=== PATIENT | female | born 1945 | race Caucasian/White ===

== ENCOUNTER → 2017-09-05 | Day surgery (SDC) | payer MEDICARE ==
[~2017-09-05] VITALS: Ht 162.6 cm; Wt 84.8 kg
[~2017-09-05] MED LIST: *ONDANSETRON 4 MG VIAL PERIprocedural Use ONLY ONE; *RESP: ALBUTEROL 2.5 MG/3 ML NEB (PRN) PERIprocedural Use ONLY NEB ONE; ACETAMINOPHEN 1000 MG/100 ML 100 ML IV ONE; ACETAMINOPHEN/HYDROcodone 325 MG/5 MG TAB PO PRN; AMLO5TAB2 PO; ANAS1TAB PO; APREPITANT 40 MG CAP ONE; ASPI81CH7 PO; BUPIVACAINE/EPINEPHRINE 0.25% 50 ML VIAL ONE; CHLORHEXIDINE GLUCONATE 2 % 1 PACK (2 CLOTHS) TOPICAL PRN; DEXAMETHASONE SOD PHOS 4 MG/ML VIAL IV ONE; DO NOT ADM ANY ANTICOAGULANT DRUGS PRN; FAMOTIDINE 20 MG/2 ML VIAL ONE; GLUC500T4 PO; GLYCOPYRROLATE 1 MG/5 ML SYRINGE IV PUSH ONE; HYDR25TA5 PO; HYDROmorphone HCL PF 2 MG/ML VIAL ONE; LACTATED RINGER'S 1000 ML INJ 1,000 ML IV ONE; LACTATED RINGER'S 1000 ML IV PRN; LIDOCAINE HCL 1% PF 5 ML AMPULE OTHER ONE; LOSA50TA PO; METOPROLOL TARTRATE 25 MG TAB PO PRN; MULTTAB67 PO; NEOSTIGMINE 3 MG/3 ML SYR IV ONE; NEXI40CA PO; ONDANSETRON HCL 4 MG/2 ML VIAL IV PUSH ONE; ONDANSETRON HCL 4 MG/2 ML VIAL IV PUSH PRN; POVIDONE IODINE 5% (ANTISEPSIS KIT) 4 APPLICATIONS EACH NARE PRN; PRAV10TA PO; PROPOFOL 200 MG/20 ML AMP IV ONE; ROCURONIUM INJ 50 MG/5 ML SYRINGE IV PUSH ONE; SODIUM CHLORID 0.9% 500 ML IV PRN; VITA2000 PO; ceFAZolin 2 GM PREMIX 50 ML IV SCH
[2017-09-05 10:14] LABS: AUTOMATED NEUTROPHIL # 3.5 TH/MM3 (1.8-7.7); BASOPHIL % 0.4 % (0.0-2.0); EOSINOPHIL # 0.1 TH/MM3 (0-0.4); EOSINOPHIL % 2.3 % (0.0-4.0); HEMATOCRIT 35.5 % (35.0-46.0); HEMO FLAGS DIFF FINAL; LYMPHOCYTE # 2.2 TH/MM3 (1.0-4.8); MEAN CELL VOLUME 88.9 FL (80.0-100.0); MEAN CORPUSCULAR HEMOGLOBIN 30.4 PG (27.0-34.0); MEAN CORPUSCULAR HGB CONC 34.2 % (32.0-36.0); MONO % 7.9 % (0.0-8.0); NEUT % 55.4 % (16.0-70.0); PLATELET COUNT 309 TH/MM3 (150-450); RED BLOOD COUNT 3.99 MIL/MM3 (4.00-5.30); RED CELL DISTRIBUTION WIDTH 14.3 % (11.6-17.2); WHITE BLOOD COUNT 6.4 TH/MM3 (4.0-11.0)
[2017-09-05 10:28] LABS: ANION GAP 8 MEQ/L (5-15); AST (GOT) 18 U/L (15-37); BICARBONATE 26.9 MEQ/L (21.0-32.0); CHLORIDE 104 MEQ/L (98-107); GLOMERULAR FILTRATION RATE 66 ML/MIN (>89); POTASSIUM 3.3 MEQ/L (3.5-5.1); SODIUM (NA) 139 MEQ/L (136-145)
[2017-09-05 10:35] LABS: ALKALINE PHOSPHATASE 84 U/L (45-117); ALT (GPT) 39 U/L (10-53); BLOOD UREA NITROGEN 13 MG/DL (7-18); TOTAL BILIRUBIN ADULT 0.4 MG/DL (0.2-1.0)
--- NOTE | 2017-09-05 11:44 | PD.OP ---
Operative Report Date of Surgery: Sep 05, 2017 Preoperative Diagnosis: hiatal hernia, GERD umbilical incisional hernia Postoperative Diagnosis: same Procedure: lap repair hiatal hernia, implantation magnetic sphincter augmentation device open repair umbilical incisional hernia. Anesthesia: general Surgeon: Maurice Miller Reverse Logistics Analyst(s): Jorje Xiong Operation and Findings: small hiatal hernia approximated with suture. size 16 Linx. EBL minimal Maurice Miller MD Sep 05, 2017 11:44
--- NOTE | 2017-09-05 12:52 | MP ---
cc: CHELSEY CHAVARRIA M.D., MARK M.D. Corrected Copy: 09/06/2017 DATE OF SURGERY 09/05/2017 PREOPERATIVE DIAGNOSIS Hiatal hernia, gastroesophageal reflux disease, umbilical incisional hernia. POSTOPERATIVE DIAGNOSES Hiatal hernia, gastroesophageal reflux disease, umbilical incisional hernia. PROCEDURE Laparoscopic repair hiatal hernia with implantation magnetic sphincter augmentation device and open repair umbilical incisional hernia. SURGEON Dr. Chelsey Chavarria SLICE PLUG CUTTER OPERATOR Dr. Jorje Xiong ANESTHESIA General INDICATIONS This is a pleasant 72-year-old woman who was sent to me in consultation by Dr. Syd Emamnuel for evaluation of hiatal hernia and gastroesophageal reflux disease, refractory to proton pump inhibitor treatment. She underwent preoperative EGD and has biopsy proven esophagitis. She has had prior history of esophageal dilatation. She underwent manometry to ensure she had normal peristaltic esophageal motility and she did. She desired to proceed with operative repair of her hiatal hernia with implantation of magnetic sphincter augmentation device. She had prior abdominoplasty and at the umbilicus, she had a recurrent umbilical hernia. INTRAOPERATIVE FINDINGS A relatively small hiatal hernia repaired primarily with suture. Size 16 LINX magnetic sphincter augmentation device placed without complication. Normal appearing gallbladder. Small umbilical hernia with preperitoneal fatty tissue protruding through it, amputated and discarded. Primary suture repair. No mesh used. ESTIMATED BLOOD LOSS Minimal DESCRIPTION OF PROCEDURE IN DETAIL The patient identified as Sahil Jerry, taken to the operating room, placed in the supine position. Sequential compression devices were placed on bilateral lower extremities. Following induction of adequate general endotracheal anesthesia, the patient's abdomen was prepped and draped in the usual sterile fashion with Betadine. Time-out procedure was performed. Following completion of the time-out procedure to everyone's satisfaction within the room, local anesthetic was injected at each incision site. A supraumbilical incision above 4 cm above the umbilicus was carried out with a scalpel. Dissection continued posteriorly to the level of the midline fascia. Sutures from a prior plication of the fascia from abdominoplasty were identified. These were incised and the fascia was incised and entry into the peritoneal cavity was facilitated with the surgeon's finger. The applied medical balloon Evan trocar was placed in the peritoneal cavity, its balloon inflated to two insufflations to a level of 15 mmHg ensued. The patient was placed in steep reverse Trendelenburg position and four upper abdominal 5 mm trocars were placed in the peritoneal cavity under direct laparoscopic view after incision in the skin with a scalpel. Lyubov-flex liver retractor was placed beneath the left lower lobe of liver retracting it anteriorly and held in position with the robot arm. Attention was turned to opening the gastrohepatic ligament and this was performed using the harmonic scalpel. This allowed identification of the right diaphragmatic crura and herniated fatty tissue into the retroesophageal area was reduced from the mediastinum into the peritoneal cavity. The hernia sac was released circumferentially and a posterior window was developed with the Lyubov-flex coburn's retractor. Further dissection allowed for mobilization of the esophagus and the GE junction sitting comfortably within the abdominal cavity. The posterior vagus nerve was identified and a window between it and the esophagus was created with blunt dissection. A vessel loop was placed behind the esophagus through this space. The LINX measuring device sizer was placed and the size selected was a 16. The 16 LINX was brought onto the surgical field and sterilely placed into the peritoneal cavity and placed through the posterior window between the esophagus and the posterior vagus nerve. It was connected in the standard fashion ensuring that it had been completely connected and two sutures that allowed for positioning were excised and removed. Photographs were taken of the completed repair placement of the LINX. The posterior diaphragmatic crura were approximated to interrupted 0-Ethibond sutures taking care to make the closure snug, but not stricture the esophagus. A re-survey of the abdominal cavity demonstrated no abnormalities of liver, the gallbladder or the stomach. The Lyubov-flex liver retractor was removed. Trocars were removed under direct visualization. There was no evidence of bleeding from the trocar sites. The peritoneum was desufflated through the supraumbilical ports and was then removed. The supraumbilical fascial incision was closed with interrupted 0 Vicryl sutures. Port site skin incisions were approximated with 4-0 Monocryl subcuticular sutures. Attention was then turned to repair the umbilical incisional hernia. Local anesthetic was placed in the periumbilical position. The inferior aspect of the previous scar was opened with a scalpel. The umbilicus was lifted off the herniated preperitoneal fatty tissue using a scalpel. Preperitoneal fatty tissue was withdrawn through the opening and amputated with a harmonic scalpel. The fascial defect was easily palpable and was approximated with three interrupted inverted 0-Prolene sutures. The umbilicus reformed with 3-0 Vicryl suture and the skin was approximated with a 4-0 Monocryl subcuticular sutures. All incision sites were covered with Mastisol and half inch brown Steri-Strips. Gauze and Tegaderm were placed over the umbilicus. The patient tolerated the procedure without apparent complication. Sponge, needle and instrument counts were correct at the end of the case. MD MARY Mora/RJ /11:51 AM /2:30 PM
--- NOTE | 2017-09-05 13:51 | EKG ---
Date Performed: 09/05/2017 Time Performed: 08:11:24 PTAGE: 72 years EKG: Sinus rhythm Possible INFERIOR MYOCARDIAL INFARCTION , PROBABLY OLD ABNORMAL ECG NO PREVIOUS TRACING DOCTOR: Anurag Gallego Interpretating Date/Time 09/05/2017 13:50:37
[2017-09-05 15:34] VITALS: BP 137/63; PULSE 88; RESP 18; TEMP 97.6; O2SAT 94
== END | disposition home or self-care (01) ==
LOC: HSDC 07:44
PROVIDERS: ATTEND Surgery Trauma Surgery
DX: K44.9 Diaphragmatic hernia without obstruction or gangrene (principal); K42.9 Umbilical hernia without obstruction or gangrene; K21.0 Gastro-esophageal reflux disease with esophagitis; I10 Essential (primary) hypertension
CPT/HCPCS: 00790; 43281; 49585; 80053; 85025; 93005; 94664; J0131; J0690; J1100; J1170; J2405; J2710; J3010; J7120; J7613; J8501